=== PATIENT | female | born 1930 | race African-American/Black ===

== ENCOUNTER 2017-04-18 18:33 | Observation (INO) | payer MEDICARE ==
[~2017-04-18] VITALS: Ht 157.5 cm; Wt 46.0 kg
[~2017-04-18 18:33] MED LIST: COUM5TAB PO
[2017-04-18 18:58] VITALS: BP 177/84; PULSE 71; RESP 15; TEMP 98.4
--- NOTE | 2017-04-18 19:25 | PD ---
HPI Chief Complaint: Dizziness Time Seen by Provider: 19:15 Travel History International Travel<30 days: No Contact w/Intl Traveler<30days: No Traveled to known affect area: No History of Present Illness HPI The patient is an 86 year old female who presents to the [facility] emergency department with a history of reportedly feeling off balance since approximately 7 AM this morning. The patient reports that she was sleeping on the couch which is not unusual for her. She reports that she then noticed that the mail restaurant delivery driver had arrived at that time when he usually arrive in the afternoon. She reports that she sat up to go investigate and felt off balance. She reports that she felt as if she was drinking alcohol, however she does not drink. The patient reports that she went to lie down again and throughout the day has continued to feel unusual. She cannot recall moving from one room to the other. She reports that she has not eaten today she has not had an appetite which is also unusual for her. She reports that she is on multiple medications, however she does not know the names of any of her medicines. She reports that her primary care physician is Dr. Patiño. According to the record the patient was previously anticoagulated on Coumadin related to a mechanical heart valve replacement in 2014. She denies being on Coumadin at this time. On review systems, the patient denies any recent fevers, cough, congestion, neck pain, chest pain, shortness of breath, abdominal pain, vomiting , diarrhea, urinary symptoms, one-sided weakness, slurred speech, facial droop, double vision, difficulty with word finding ability, numbness or tingling to her extremities, or sensation of the room spinning. The patient reports that she does live at home alone. The patient is [facility]. She reports that her children live in another state. [facility] Past Medical History Narrative Medical The patient's past medical history is significant for a valve replacement with a mechanical valve in 2015, history of hypertension Hx Anticoagulant Therapy: Yes (COUMADIN ) Cardiovascular Problems: Yes Diminished Hearing: No Influenza Vaccination: No Past Surgical History Narrative Surgical The patient's past surgical history is significant for a valve replacement. Cardiac Surgery: Yes (VALVE REPLACEMENT) Social History Alcohol Use: No Tobacco Use: No Substance Use: No Allergies-Medications (Allergen,Severity, Reaction): Coded Allergies: Penicillin (Verified Allergy, Severe, Rash, 2/21/16) Reported Meds & Prescriptions Reported Meds & Active Scripts Active Narrative Medication The patient is unable to recall any of the names of her indications. Review of Systems Except as stated in HPI: all other systems reviewed are Neg General / Constitutional: No: Fever Eyes: No: Visual changes HENT: Positive: Lightheadedness, No: Headaches Cardiovascular: No: Chest Pain or Discomfort Respiratory: No: Shortness of Breath Gastrointestinal: No: Abdominal Pain Genitourinary: No: Dysuria Musculoskeletal: No: Pain Skin: No Rash Neurologic: Positive: Coordination Problem, Change in Mentation, No: Weakness , Focal Abnormalities, Slurred Speech, Sensory Disturbance Psychiatric: No: Depression Endocrine: No: Polydipsia Hematologic/Lymphatic: No: Easy Bruising Physical Exam Narrative General: The patient is a well-developed well-nourished female in no acute distress Head and Neck exam: Head is normocephalic atraumatic. Eyes: The patient's gaze is disconjugate with right eye slightly gazing outward. She is unsure whether she has a history of this. She reports that she has normal vision currently. She denies having any double vision. Pupils are equal round and reactive to light. Nose: Midline septum with pink mucous membranes Mouth: Dentition unremarkable. Moist mucus membranes. Posterior oropharynx is not erythematous. No tonsillar hypertrophy. Uvula midline. Airway patent. Neck: No palpable lymphadenopathy. No nuchal rigidity. No thyromegaly. Cardiovascular: Regular rate and rhythm without murmurs, gallops, or rubs. Lungs: Clear to auscultation bilaterally. No wheezes, rhonchi, or rales. Abdomen: Soft, without tenderness to palpation in all 4 quadrants of the abdomen. No guarding, rebound, or rigidity. Normal bowel sounds are audible. No tenderness on palpation of McBurney's point. Extremities: No clubbing, cyanosis, or edema. 2+ pulses in all 4 extremities. No calf tenderness on palpation. Back: No costovertebral angle tenderness to palpation. Neurologic Exam: Cranial nerves 2-12 were intact on exam. Strength is 5/5 in all 4 extremities. No sensory deficits noted. No dysdiadochokinesis. Good finger to nose and Heel to concepcion bilaterally. The patient has a slightly unsteady gait with walking, however she is able to stand with good balance without difficulty. Her gait is slightly wide-based. The patient on orientation testing is oriented to person, place, however when asked the year she states that it is 1915, that the month is February. She also has difficulty recalling events earlier today. Skin Exam: No rash noted. Intact skin that is warm and dry. Data Data Last Documented VS Vital Signs Date Time Temp Pulse Resp B/P Pulse Ox O2 Delivery O2 Flow Rate FiO2 04/18/17 20:45 58 18 211/94 98 Room Air 04/18/17 18:58 98.4 Orders Electrocardiogram (04/18/17:17) Complete Blood Count With Diff (04/18/17:17) Comprehensive Metabolic Panel (04/18/17 19:17) Creatine Kinase (Cpk) (04/18/17 19:17) Ckmb (Isoenzyme) Profile (04/18/17 19:17) Troponin I (04/18/17:17) B-Type Natriuretic Peptide (04/18/17 19:17) Prothrombin Time / Inr (Pt) (04/18/17 19:17) Act Partial Throm Time (Ptt) (04/18/17 19:17) Lipase (04/18/17 19:17) Urinalysis - C+S If Indicated (04/18/17 19:17) Magnesium (Mg) (04/18/17 19:17) Chest, Single Ap (04/18/17 19:17) Ct Brain W/O Iv Contrast(Rout) (04/18/17 19:17) Iv Access Insert/Monitor (04/18/17 19:17) Ecg Monitoring (04/18/17 19:17) Oximetry (04/18/17 19:17) Orthostatic Vital Signs (04/18/17 19:17) Ammonia (04/18/17 19:45) Drug Screen, Random Urine (04/18/17 19:45) Alcohol (Ethanol) (04/18/17 19:45) Salicylates (Aspirin) (04/18/17 19:46) Tylenol (Acetaminophen) (04/18/17 19:46) CKMB (04/18/17 19:15) CKMB% (04/18/17 19:15) Sodium Chlor 0.9% 250 Ml Inj (Ns 250 Ml (04/18/17 21:00) Labetalol Inj (Trandate Inj) (04/18/17 21:00) Clonidine (Catapres) (04/18/17 21:45) Admit Order (Ed Use Only) (04/18/17 22:15) Labs Laboratory Tests Test 04/18/17 04/18/17 04/18/17 19:15 20:00 21:33 White Blood Count 9.0 TH/MM3 Red Blood Count 4.61 MIL/MM3 Hemoglobin 10.5 GM/DL Hematocrit 33.2 % Mean Corpuscular Volume 72.1 FL Mean Corpuscular Hemoglobin 22.9 PG Mean Corpuscular Hemoglobin 31.7 % Concent Red Cell Distribution Width 15.8 % Platelet Count 195 TH/MM3 Mean Platelet Volume 7.9 FL Neutrophils (%) (Auto) 56.7 % Lymphocytes (%) (Auto) 29.1 % Monocytes (%) (Auto) 12.0 % Eosinophils (%) (Auto) 1.4 % Basophils (%) (Auto) 0.8 % Neutrophils # (Auto) 5.1 TH/MM3 Lymphocytes # (Auto) 2.6 TH/MM3 Monocytes # (Auto) 1.1 TH/MM3 Eosinophils # (Auto) 0.1 TH/MM3 Basophils # (Auto) 0.1 TH/MM3 CBC Comment DIFF FINAL Differential Comment Prothrombin Time 11.4 SEC Prothromb Time International 1.0 RATIO Ratio Activated Partial 21.8 SEC Thromboplast Time Sodium Level 138 MEQ/L Potassium Level 3.8 MEQ/L Chloride Level 105 MEQ/L Carbon Dioxide Level 27.4 MEQ/L Anion Gap 6 MEQ/L Blood Urea Nitrogen 24 MG/DL Creatinine 1.33 MG/DL Estimat Glomerular Filtration 46 ML/MIN Rate Random Glucose 108 MG/DL Calcium Level 8.8 MG/DL Magnesium Level 2.3 MG/DL Total Bilirubin 0.7 MG/DL Aspartate Amino Transf 24 U/L (AST/SGOT) Alanine Aminotransferase 17 U/L (ALT/SGPT) Alkaline Phosphatase 63 U/L Total Creatine Kinase 255 U/L Creatine Kinase MB 3.0 NG/ML Creatine Kinase MB % 1.2 % Troponin I LESS THAN 0.02 NG/ML B-Type Natriuretic Peptide 160 PG/ML Total Protein 8.0 GM/DL Albumin 3.7 GM/DL Lipase 285 U/L Ethyl Alcohol Level LESS THAN 3 MG/DL Ammonia 19 MCMOL/L Salicylates Level LESS THAN 1.7 MG/DL Acetaminophen Level LESS THAN 2.0 MCG/ML Urine Color YELLOW Urine Turbidity CLEAR Urine pH 6.0 Urine Specific [place] 1.016 Urine Protein TRACE mg/dL Urine Glucose (UA) NEG mg/dL Urine Ketones NEG mg/dL Urine Occult Blood TRACE Urine Nitrite NEG Urine Bilirubin NEG Urine Urobilinogen LESS THAN 2.0 MG/DL Urine Leukocyte Esterase LARGE Urine RBC 5 /hpf Urine WBC 7 /hpf Urine Squamous Epithelial 5 /hpf Cells Microscopic Urinalysis Comment CULT NOT INDICATED Urine Opiates Screen NEG Urine Barbiturates Screen NEG Urine Amphetamines Screen NEG Urine Benzodiazepines Screen NEG Urine Cocaine Screen NEG Urine Cannabinoids Screen NEG MDM Medical Decision Making Medical Screen Exam Complete: Yes Emergency Medical Condition: Yes Medical Record Reviewed: Yes Interpretation(s) Last Impressions Head CT 04/18/171916 Signed Impressions: Service Date/Time: Tuesday, April 18, 2017 19:44 - CONCLUSION: Symmetric mild ventriculomegaly and chronic appearing white matter density changes. Lavelle Ryan MD Chest X-Ray 04/18/171916 Signed Impressions: Service Date/Time: Tuesday, April 18, 2017 19:14 - CONCLUSION: 1. Cardiomegaly without focal consolidation or effusion. Minimal basal atelectasis or scarring. Rigoberto Lane MD Differential Diagnosis Urinary tract infection, versus intracranial abnormality, versus dementia, versus normal pressure hydrocephalus, versus underlying other infectious process such as pneumonia Narrative Course During the course of the patients emergency department visit, the patients history, examination, and differential diagnosis were reviewed with the patient. The patient had IV access obtained and blood work sent for analysis. The patient was placed on a cardiac catheterization technician with oximetry and blood pressure monitoring. An ECG was done on arrival. The patient's ECG shows a sinus rhythm heart rate of 60, QRS duration is 74 ms, QTC [address] segment elevation or depression, T waves are inverted in V1. The patient was initially provided normal saline at 250 mL bolus. Orthostatics were done and were negative for orthostasis, however the patient's blood pressure did go up to 230 systolic while sitting. The patient was observed regarding her elevated blood pressure for slightly longer as she was asymptomatic. The patient's blood pressure continued to be elevated at a systolic of 210. The patient was given labetalol 10 mg IV. It is unclear whether the patient has been on blood pressure medication and whether the patient has been compliant with a regimen. The patients laboratory studies were reviewed and remarkable for white count of 9, hemoglobin 10.5, platelets 195 with 12 monocytes, CMP is remarkable for a BUN of 24, creatinine 1.33, glucose 108, CPK 255, MB percent 1.2, troponin I less than 0.02, lipase 285, ammonia level XIX, PT 11.4, PTT 21.8, salicylate less than 1.7 Radiology studies were reviewed and remarkable for a chest x-ray that shows cardiomegaly without focal consolidation or effusion, minimal basilar atelectasis or scarring. CT scan of the brain shows symmetric mild ventriculomegaly and chronic appearing white matter density changes. The patient's blood pressure continued to be elevated. The patient was given clonidine 0.1 by mouth 1. The patient will be admitted to the hospital for altered mentation, hypertension, rule out urinalysis. Again the lab was called regarding the patient's urinalysis results. The patient was having a urine drug screen run, however the urinalysis was not started at approximately 10:15 PM despite of the sample being sent at received at 2133. Urinalysis is remarkable for trace occult blood, large leukocyte esterase, rbc' s 5, WBCs 7, 5 squamous epithelial cells. Urine drug screen is negative The patients results were discussed with the patient, including the plan of care. I explained that further testing and/ or monitoring is indicated based on the patients history, examination, and/ or laboratory findings. Therefore, I recommended admission for additional evaluation. The patient expressed understanding and was agreeable with this plan. The patient was admitted to the hospital in stable condition and sent to a bed under the care of the [facility] hospitalist service. Physician Communication Physician Communication The patient's case is discussed with Dr. Loera who did agree to admit the patient for further evaluation and treatment at this time. Diagnosis Primary Impression: Altered mental status Qualified Code: R41.0 - Disorientation Additional Impression: Hypertension Qualified Code: I10 - Hypertension, unspecified type Admitting Information Admitting Physician Requests: Aruna Farooq MD Apr 18, 2017 19:25
[2017-04-18 19:33] VITALS: BP_SYST 177; BP_SYST 190; BP_SYST 230; BP_DIAS 102; BP_DIAS 89; BP_DIAS 91; RESP 16; O2SAT 96
--- NOTE | 2017-04-18 19:41 | RADRPT ---
EXAM DATE/TIME: 04/18/2017 19:14 [facility] COMPARISON: No previous studies available for comparison. INDICATIONS : Cough. MEDICAL HISTORY : Myocardial infarction. SURGICAL HISTORY : CABG. ENCOUNTER: Initial ACUITY: 1 day PAIN SCORE: 0/10 LOCATION: Bilateral chest FINDINGS: A single view of the chest demonstrates the lungs to be symmetrically aerated without evidence of mas s, infiltrate or effusion. The cardiomediastinal contours are prominent. No effusion. CONCLUSION: 1. Cardiomegaly without focal consolidation or effusion. Minimal basal atelectasis or scarring. Rigoberto Lane MD on April 18, 2017 at 19:38 Board Certified Radiologist. This report was verified electronically.
[2017-04-18 19:49] LABS: AUTOMATED NEUTROPHIL # 5.1 TH/MM3 (1.8-7.7); BASOPHIL # 0.1 TH/MM3 (0-0.2); BASOPHIL % 0.8 % (0.0-2.0); EOSINOPHIL # 0.1 TH/MM3 (0-0.4); EOSINOPHIL % 1.4 % (0.0-4.0); HEMATOCRIT 33.2 % (35.0-46.0); HEMO FLAGS DIFF FINAL; LYMPH % 29.1 % (9.0-44.0); LYMPHOCYTE # 2.6 TH/MM3 (1.0-4.8); MEAN CELL VOLUME 72.1 FL (80.0-100.0); MEAN CORPUSCULAR HEMOGLOBIN 22.9 PG (27.0-34.0); MEAN CORPUSCULAR HGB CONC 31.7 % (32.0-36.0); NEUT % 56.7 % (16.0-70.0); PLATELET COUNT 195 TH/MM3 (150-450); RED BLOOD COUNT 4.61 MIL/MM3 (4.00-5.30); RED CELL DISTRIBUTION WIDTH 15.8 % (11.6-17.2)
[2017-04-18 19:58] LABS: APTT (PATIENT) 21.8 SEC (24.3-30.1); PROTHROMBIN TIME - PATIENT 11.4 SEC (9.8-11.6)
[2017-04-18 20:18] LABS: ALT (GPT) 17 U/L (10-53); ANION GAP 6 MEQ/L (5-15); AST (GOT) 24 U/L (15-37); BICARBONATE 27.4 MEQ/L (21.0-32.0); BLOOD UREA NITROGEN 24 MG/DL (7-18); CHLORIDE 105 MEQ/L (98-107); GLOMERULAR FILTRATION RATE 46 ML/MIN (>89); MAGNESIUM 2.3 MG/DL (1.5-2.5); POTASSIUM 3.8 MEQ/L (3.5-5.1); SODIUM (NA) 138 MEQ/L (136-145)
--- NOTE | 2017-04-18 20:21 | RADRPT ---
EXAM DATE/TIME: 04/18/2017 19:44 [facility] COMPARISON: No previous studies available for comparison. INDICATIONS : Dizziness and general weakness today. RADIATION DOSE: 56.35 CTDIvol (mGy) MEDICAL HISTORY : Cardiovascular disease. SURGICAL HISTORY : valve replacement ENCOUNTER: Initial ACUITY: 1 day PAIN SCALE: 0/10 LOCATION: Bilateral head TECHNIQUE: Multiple contiguous axial images were obtained of the head. Using automated exposure control and adj ustment of the mA and/or kV according to patient size, radiation dose was kept as low as reasonably a chievable to obtain optimal diagnostic quality images. DICOM format image data is available electro nically for review and comparison. FINDINGS: There is mild symmetric ventriculomegaly. Mild symmetric diminished attenuation in periventricular wh ite matter appears chronic. There is no evidence of intracranial mass or hemorrhage. The extracranial structures are grossly benign and intact. CONCLUSION: Symmetric mild ventriculomegaly and chronic appearing white matter density changes. Lavelle Ryan MD on April 18, 2017 at 20:18 Board Certified Radiologist. This report was verified electronically.
[2017-04-18 20:22] LABS: ALKALINE PHOSPHATASE 63 U/L (45-117); CREATINE KINASE 255 U/L (26-192); TOTAL BILIRUBIN ADULT 0.7 MG/DL (0.2-1.0)
[2017-04-18 20:45] VITALS: BP 211/94; PULSE 58; RESP 18; O2SAT 98
[2017-04-18] MEDS ORDERED: SODIUM CHLOR 0.9% 250 ML INJ 250 ML IV ONE (21:00)
[2017-04-18] MEDS ORDERED: LABETALOL HCL 100 MG/20 ML VIAL IV PUSH ONE (21:00)
[2017-04-18] MEDS ORDERED: cloNIDine HCL 0.1 MG TAB PO ONE (21:45)
[2017-04-18 22:29] LABS: BLOOD, URINE TRACE (NEG); COMMENT (UR) CULT NOT INDICATED; CULTURE IF INDICATED CULT NOT INDICATED; GLUCOSE,URINE NEG (NEG); KETONE, URINE NEG (NEG); NITRITE,URINE NEG (NEG); SQUAMOUS EPITHELIAL CELL URINE 5 /hpf (0-5); URINE COLOR YELLOW (YELLW/STRAW)
[2017-04-18] MEDS ORDERED: cloNIDine HCL 0.1 MG TAB PO PRN (23:00)
[2017-04-18] MEDS: CARVEDILOL 12.5 MG TAB PO SCH (23:08)
[2017-04-18] MEDS: LISINOPRIL 20 MG TAB PO SCH (23:08)
--- NOTE | 2017-04-18 23:16 | HHI.HP ---
HPI Service [facility] Hospitalists Primary Care Physician Mayra Pearson Jr, MD Admission Diagnosis AMS, Unsteady gait, hypertension Chief Complaint: AMS, dizziness, uncontrolled BP Travel History International Travel<30 Days: No Contact w/Intl Traveler <30 Da: No Traveled to Known Affected Are: No History of Present Illness The patient is an 86 year old female with underlying dementia/delusions, HTN, hx AVR who presents to the [facility] emergency department with a history of reportedly feeling off balance since approximately 7 AM this morning. Hx obtained from friend/neighbor and pt as pt is a bit confused. The patient reports that she was sleeping on the couch which is not unusual for her. She reports that she sat up to ambulate and felt off balance. She reports that she felt as if she was drinking alcohol, however she does not drink. The patient reports that she went to lie down again and throughout the day has continued to feel unusual. She cannot recall moving from one room to the other. She reports that she has not eaten today she has not had an appetite which is also unusual for her. She reports that she is on multiple medications, however she does not know the names of any of her medicines. She reports that her primary care physician is Dr. Pearson whom she likes very much. According to the record the patient was previously anticoagulated on Coumadin related to a mechanical heart valve replacement in 2012. She denies being on Coumadin at this time and review of outpt EMR reveals that her coumadin was stopped in Sep 2016 due to increasing confusion and concerns that she was not being c/w medication. She was placed on ASA at that time and reportedly neighbors try to help with her medication regimen. She has been followed by neurology for dementia/delusions and was actually referred to psych earlier in 2017 for delusions, but apparently has not made an appointment with psych per chart review. She has additionally been followed by [facility] plan with [facility]. On review systems, the patient denies any recent fevers, cough, congestion, neck pain, chest pain, shortness of breath, abdominal pain, vomiting, diarrhea, urinary symptoms, one-sided weakness, slurred speech, facial droop, double vision, difficulty with word finding ability, numbness or tingling to her extremities, or sensation of the room spinning. The patient reports that she does live at home alone. The patient is accompanied to this emergency department visit by some evangelical staff and neighbor/friend. She reports that her children live in another state. The friend confirms that her children live elsewhere. Pt had CT done in Sep 2016 as outpt which appears similar to current CT done in ER. Review of Systems ROS Limitations: Altered Mental Status, Poor Historian Constitutional: COMPLAINS OF: Dizziness, Change in appetite Eyes: DENIES: Blurred vision, Diplopia, Eye inflammation, Eye pain, Vision loss , Photosensitivity, Double Vision Respiratory: DENIES: Apneas, Cough, Snoring, Wheezing, Hemoptysis, Sputum production, Shortness of breath Cardiovascular: DENIES: Chest pain, Palpitations, Syncope, Dyspnea on Exertion , PND, Lower Extremity Edema, Orthopnea, Claudication Musculoskeletal: COMPLAINS OF: Joint pain Neurologic: COMPLAINS OF: Abnormal gait, Poor Balance Psychiatric: COMPLAINS OF: Anxiety Past Family Social History Past Medical History Paroxysmal Afib (warfarin stopped in Sep 2016 due to concerns with noncompliance , risk of falls) HTN Dementia/delusions Anxiety Hypothyroidism Chronic anemia Past Surgical History AVR with tissue valve 11/2012 1 vessel CABG 11/2012 Cholecystectomy Reported Medications Pt is unsure of meds. Reports that she takes a "handful of meds" Outpt EMR review: Amlodipine 10mg/d ASA 81mg/d Atorvastatin 40mg/d Calcium + vit D bid MVI Aricept 10mg/d Levothyroxine 25 mcg/d [place] 20[place] [address] units/week Allergies: Coded Allergies: Penicillin (Verified Allergy, Severe, Rash, 11/02/15) Family History [place] Social History Lives alone Attends evangelical and has evangelical members/neighbors who try to look out for her Retired Never a smoker Denies EtOH use Physical Exam Vital Signs Vital Signs Date Time Temp Pulse Resp B/P Pulse Ox O2 Delivery O2 Flow Rate FiO2 04/18/17 20:45 58 18 211/94 98 Room Air 04/18/17 19:33 62 16 177/89 72 16 190/91 71 16 230/102 04/18/17 19:33 96 Room Air 04/18/17 18:58 98.4 71 15 177/84 Physical Exam GENERAL: This is a thin, well-developed patient, in no apparent distress. Pleasantly confused. Cooperative with exam SKIN: No rashes, ecchymoses. Multiple skin tags on face. Cool and dry. HEAD: Atraumatic. Normocephalic. No temporal or scalp tenderness. EYES: Pupils equal round and reactive. Extraocular motions intact. No scleral icterus. No injection or drainage. ENT: Nose without bleeding, purulent drainage or septal hematoma. Airway patent. NECK: Trachea midline. No JVD or lymphadenopathy. Supple, nontender, no meningeal signs. CARDIOVASCULAR: Regular rate and rhythm witout gallops or rubs. soft mid- systolic click with 1/6 DAISY heard at LSB. RESPIRATORY: Clear to auscultation. Breath sounds equal bilaterally. No wheezes , rales, or rhonchi. GASTROINTESTINAL: Abdomen soft, non-tender, nondistended. No hepato-splenomegaly , or palpable masses. No guarding. MUSCULOSKELETAL: Extremities without clubbing, cyanosis, or edema. No calf tenderness. NEUROLOGICAL: Awake and alert. Somewhat confused, but seems to be at her baseline per review of EMR. Cranial nerves II through XII intact. Motor and sensory grossly within normal limits. Five out of 5 muscle strength in all muscle groups. Normal speech. Laboratory Laboratory Tests Test 04/18/17 04/18/17 04/18/17 19:15 20:00 21:33 White Blood Count 9.0 Red Blood Count 4.61 Hemoglobin 10.5 Hematocrit 33.2 Mean Corpuscular Volume 72.1 Mean Corpuscular Hemoglobin 22.9 Mean Corpuscular Hemoglobin 31.7 Concent Red Cell Distribution Width 15.8 Platelet Count 195 Mean Platelet Volume 7.9 Neutrophils (%) (Auto) 56.7 Lymphocytes (%) (Auto) 29.1 Monocytes (%) (Auto) 12.0 Eosinophils (%) (Auto) 1.4 Basophils (%) (Auto) 0.8 Neutrophils # (Auto) 5.1 Lymphocytes # (Auto) 2.6 Monocytes # (Auto) 1.1 Eosinophils # (Auto) 0.1 Basophils # (Auto) 0.1 CBC Comment DIFF FINAL Differential Comment Prothrombin Time 11.4 Prothromb Time International 1.0 Ratio Activated Partial 21.8 Thromboplast Time Sodium Level 138 Potassium Level 3.8 Chloride Level 105 Carbon Dioxide Level 27.4 Anion Gap 6 Blood Urea Nitrogen 24 Creatinine 1.33 Estimat Glomerular Filtration 46 Rate Random Glucose 108 Calcium Level 8.8 Magnesium Level 2.3 Total Bilirubin 0.7 Aspartate Amino Transf 24 (AST/SGOT) Alanine Aminotransferase 17 (ALT/SGPT) Alkaline Phosphatase 63 Total Creatine Kinase 255 Creatine Kinase MB 3.0 Creatine Kinase MB % 1.2 Troponin I LESS THAN 0.02 B-Type Natriuretic Peptide 160 Total Protein 8.0 Albumin 3.7 Lipase 285 Ethyl Alcohol Level LESS THAN 3 Ammonia 19 Salicylates Level LESS THAN 1.7 Acetaminophen Level LESS THAN 2.0 Urine Color YELLOW Urine Turbidity CLEAR Urine pH 6.0 Urine Specific [place] 1.016 Urine Protein TRACE Urine Glucose (UA) NEG Urine Ketones NEG Urine Occult Blood TRACE Urine Nitrite NEG Urine Bilirubin NEG Urine Urobilinogen LESS THAN 2.0 Urine Leukocyte Esterase LARGE Urine RBC 5 Urine WBC 7 Urine Squamous Epithelial 5 Cells Microscopic Urinalysis Comment CULT NOT INDICATED Urine Opiates Screen NEG Urine Barbiturates Screen NEG Urine Amphetamines Screen NEG Urine Benzodiazepines Screen NEG Urine Cocaine Screen NEG Urine Cannabinoids Screen NEG Result Diagram: 04/18/17191404/18/171914 Imaging Last [address] 04/18/171916 Signed Impressions: Service Date/Time: Tuesday, April 18, 2017 19:44 - CONCLUSION: Symmetric mild ventriculomegaly and chronic appearing white matter density changes. Lavelle Ryan MD Chest X-Ray 04/18/171916 Signed Impressions: Service Date/Time: Tuesday, April 18, 2017 19:14 - CONCLUSION: 1. Cardiomegaly without focal consolidation or effusion. Minimal basal atelectasis or scarring. Rigoberto Lane MD Assessment and Plan Problem List: (1) Accelerated essential hypertension Status: Acute Plan: Will resume some of her home meds and use clonidine prn. Appears that some outpt BP values have been similar to current values on review. Will continue to follow. No urgent need to lower dramatically. (2) Altered mental status Status: Acute Plan: Appears to have chronic dementia with evidence of delusions in the past. She lives alone. Will have case mgmt a/w rehab or [facility]. May need jail placement, but family will need to be involved. (3) Dementia Status: Chronic Plan: as above. Continue Aricept CT noted and stable with Sep 2016 CT. Pt doesn't have evidence of urinary incontinence and gait is relatively stable per ER MD so NPH likely not the etiology. (4) Hyperlipidemia Status: Chronic Plan: check labs in AM. Continue med. Would not be overly aggressive. (5) Hypothyroidism Status: Chronic Plan: continue rx. Check labs (6) Unsteady gait Status: Chronic Plan: seems relatively stable per d/w ER provider Fall precautions. PT eval. Assessment and Plan hopefully d/c to rehab tomorrow. Discussed Condition With Pt, ER provider, family friend/evangelical member Problem Qualifiers (1) Altered mental status: Qualified Code: R41.0 - Disorientation Levon Loera MD PhD Apr 18, 2017 23:16
[2017-04-19] VITALS (8 sets, daily range): BP systolic 124–199; BP diastolic 60–86; PULSE 51–60; RESP 16–19; TEMP 96.6–98.1; O2SAT 97–100
[2017-04-19] MEDS: LEVOTHYROXINE SODIUM 25 MCG TAB PO SCH (05:54)
[2017-04-19] MEDS: ATORVASTATIN 40 MG TAB PO SCH (08:39)
[2017-04-19] MEDS: CARVEDILOL 12.5 MG TAB PO SCH (08:40)
[2017-04-19] MEDS: LISINOPRIL 20 MG TAB PO SCH ×2 (08:40→20:09)
[2017-04-19] MEDS: ASPIRIN EC 81 MG TABEC PO SCH (08:40)
--- NOTE | 2017-04-19 09:25 | HHI.PR ---
Subjective Remarks Pt reports that she is feeling better today She is oriented to self only. Objective Vitals Vital Signs Date Time Temp Pulse Resp B/P Pulse Ox O2 Delivery O2 Flow Rate FiO2 04/19/17 08:34 97.5 52 18 145/69 99 04/19/17 03:03 96.8 54 16 159/68 99 04/19/17 02:35 96.6 54 19 199/86 100 04/19/17 00:34 52 18 169/75 99 Room Air 04/19/17 00:09 51 18 192/83 98 Room Air 04/18/17 20:45 58 18 211/94 98 Room Air 04/18/17 19:33 62 16 177/89 72 16 190/91 71 16 230/102 04/18/17 19:33 96 Room Air 04/18/17 18:58 98.4 71 15 177/84 04/18/17 04/18/17 04/19/17 14:59 22:59 06:59 # Voids 1 Result Diagram: 04/18/17191404/18/171914 Other Results Laboratory Tests Test 04/18/17 04/18/17 04/18/17 19:15 20:00 21:33 White Blood Count 9.0 TH/MM3 Red Blood Count 4.61 MIL/MM3 Hemoglobin 10.5 GM/DL Hematocrit 33.2 % Mean Corpuscular Volume 72.1 FL Mean Corpuscular Hemoglobin 22.9 PG Mean Corpuscular Hemoglobin 31.7 % Concent Red Cell Distribution Width 15.8 % Platelet Count 195 TH/MM3 Mean Platelet Volume 7.9 FL Neutrophils (%) (Auto) 56.7 % Lymphocytes (%) (Auto) 29.1 % Monocytes (%) (Auto) 12.0 % Eosinophils (%) (Auto) 1.4 % Basophils (%) (Auto) 0.8 % Neutrophils # (Auto) 5.1 TH/MM3 Lymphocytes # (Auto) 2.6 TH/MM3 Monocytes # (Auto) 1.1 TH/MM3 Eosinophils # (Auto) 0.1 TH/MM3 Basophils # (Auto) 0.1 TH/MM3 CBC Comment DIFF FINAL Differential Comment Prothrombin Time 11.4 SEC Prothromb Time International 1.0 RATIO Ratio Activated Partial 21.8 SEC Thromboplast Time Sodium Level 138 MEQ/L Potassium Level 3.8 MEQ/L Chloride Level 105 MEQ/L Carbon Dioxide Level 27.4 MEQ/L Anion Gap 6 MEQ/L Blood Urea Nitrogen 24 MG/DL Creatinine 1.33 MG/DL Estimat Glomerular Filtration 46 ML/MIN Rate Random Glucose 108 MG/DL Calcium Level 8.8 MG/DL Magnesium Level 2.3 MG/DL Total Bilirubin 0.7 MG/DL Aspartate Amino Transf 24 U/L (AST/SGOT) Alanine Aminotransferase 17 U/L (ALT/SGPT) Alkaline Phosphatase 63 U/L Total Creatine Kinase 255 U/L Creatine Kinase MB 3.0 NG/ML Creatine Kinase MB % 1.2 % Troponin I LESS THAN 0.02 NG/ML B-Type Natriuretic Peptide 160 PG/ML Total Protein 8.0 GM/DL Albumin 3.7 GM/DL Lipase 285 U/L Ethyl Alcohol Level LESS THAN 3 MG/DL Ammonia 19 MCMOL/L Salicylates Level LESS THAN 1.7 MG/DL Acetaminophen Level LESS THAN 2.0 MCG/ML Urine Color YELLOW Urine Turbidity CLEAR Urine pH 6.0 Urine Specific [place] 1.016 Urine Protein TRACE mg/dL Urine Glucose (UA) NEG mg/dL Urine Ketones NEG mg/dL Urine Occult Blood TRACE Urine Nitrite NEG Urine Bilirubin NEG Urine Urobilinogen LESS THAN 2.0 MG/DL Urine Leukocyte Esterase LARGE Urine RBC 5 /hpf Urine WBC 7 /hpf Urine Squamous Epithelial 5 /hpf Cells Microscopic Urinalysis Comment CULT NOT INDICATED Urine Opiates Screen NEG Urine Barbiturates Screen NEG Urine Amphetamines Screen NEG Urine Benzodiazepines Screen NEG Urine Cocaine Screen NEG Urine Cannabinoids Screen NEG Imaging Last [address] 04/18/171916 Signed Impressions: Service Date/Time: Tuesday, April 18, 2017 19:44 - CONCLUSION: Symmetric mild ventriculomegaly and chronic appearing white matter density changes. Lavelle Ryan MD Chest X-Ray 04/18/171916 Signed Impressions: Service Date/Time: Tuesday, April 18, 2017 19:14 - CONCLUSION: 1. Cardiomegaly without focal consolidation or effusion. Minimal basal atelectasis or scarring. Rigoberto Lane MD Objective Remarks General: NAD, Alert and oriented to self only Chest: CTA Cardiac: Regular Abd: +BS, soft ND/NT Ext: No edema A/P Problem List: (1) Accelerated essential hypertension Status: Acute Plan: - Pt was resumed on Coreg 12.5mg po BID, Lisinopril 20mg BID and Norvasc 10mg po daily. - BP is better today but HR in the 50's. - Clonidine prn. - It is not clear that the pt is taking her medications consistently at home as she lives alone and has dementia - Hold the COreg this morning as HR is in the 50's - Cont. Norvasc and Lisinopril - Will continue to follow. - PT to evaluate today - Pt will need SNF placement and then likely LTC after that but this will need to be discussed with her family. - Supportive care (2) Altered mental status Status: Acute Plan: - Appears to have chronic dementia with evidence of delusions in the past. - She lives alone. - Will have case mgmt a/w rehab or [facility]. - Discussed the case with one of the pts (3) Dementia Status: Chronic Plan: - As above. Continue Aricept - CT noted and stable with Sep 2016 CT. - Pt doesn't have evidence of urinary incontinence and gait is relatively stable per ER MD so NPH likely not the etiology. (4) Hyperlipidemia Status: Chronic Plan: - Continue home meds. - Would not be overly aggressive. (5) Hypothyroidism Status: Chronic Plan: continue rx. Check labs (6) Unsteady gait Status: Chronic Plan: - Fall precautions. - PT eval. Assessment and Plan Patient examined. Assessment and plan formulated with Ethel Linder PA-C. I agree with the above. elevated htn. adjust bp meds today and observe. progressive dementia and declining ability to care for self.../ noncompliance with meds suspected. family called and they agree with snf...d/c in AM Problem Qualifiers (1) Altered mental status: Qualified Code: R41.0 - Disorientation Ethel Linder Apr 19, 2017 09:25 Nahid Del Valle MD Apr 19, 2017 12:04
[2017-04-19 10:08] LABS: BICARBONATE 28.8 MEQ/L (21.0-32.0); POTASSIUM 4.2 MEQ/L (3.5-5.1)
[2017-04-19 10:17] LABS: HDL CHOLESTEROL 69.7 MG/DL (40.0-60.0)
--- NOTE | 2017-04-19 15:40 | EKG ---
Date Performed: 04/18/2017 Time Performed: 19:43:58 PTAGE: 86 years EKG: Sinus rhythm POSSIBLE LEFT ATRIAL ENLARGEMENT BORDERLINE ECG PREVIOUS TRACING : 11/02/2015 19.41 DOCTOR: Radha Rider Interpretating Date/Time 04/19/2017 15:37:51
[2017-04-19] MEDS ORDERED: LEVO25TA4 PO (16:53)
[2017-04-19] MEDS ORDERED: ASPI-99 PO (16:53)
[2017-04-19] MEDS ORDERED: ATOR40TA16 PO (16:53)
[2017-04-19] MEDS ORDERED: LISI-515 PO (16:53)
[2017-04-19] MEDS ORDERED: ARIC5TAB2 PO (16:53)
--- NOTE | 2017-04-19 16:55 | HHI.DCPOC ---
Discharge Care Plan Diagnosis: (1) Hypertension (2) Hyperlipidemia (3) Hypothyroidism (4) Altered mental status (5) Unsteady gait (6) Accelerated essential hypertension (7) Dementia Goals to Promote Your Health * To prevent worsening of your condition and complications * To maintain your health at the optimal level Directions to Meet Your Goals Take your medications as prescribed Follow your dietary instruction Follow activity as directed Keep your appointments as scheduled Take your immunizations and boosters as scheduled If your symptoms worsen call your PCP, if no PCP go to Urgent Care Center or Emergency Room Smoking is Dangerous to Your Health. Avoid second hand smoke Call the 24-hour hour crisis hotline for domestic abuse at Ethel Linder Apr 19, 2017 16:55
[2017-04-19] MEDS ORDERED: DONEPEZIL HCL 5 MG TAB PO SCH (21:00)
[2017-04-20 00:31] VITALS: BP 179/85; PULSE 68; RESP 17; TEMP 98.2; O2SAT 98
[2017-04-20 05:18] VITALS: BP 185/87; PULSE 68; RESP 16; TEMP 97.6; O2SAT 99
[2017-04-20] MEDS: LEVOTHYROXINE SODIUM 25 MCG TAB PO SCH (05:24)
[2017-04-20 07:27] VITALS: BP 196/93; PULSE 67; RESP 18; TEMP 97.8; O2SAT 98
[2017-04-20] MEDS: NIFEdipine 30 MG SUSTAINED RELEASE TAB PO SCH ×2 (07:41→09:00)
[2017-04-20] MEDS ORDERED: NIFE30TA8 PO (08:32)
--- NOTE | 2017-04-20 09:26 | HHI.PR ---
Subjective Remarks pleasantly demented nad. Objective Vitals heart reg lung cta abd s/nt ext no edema Vital Signs Date Time Temp Pulse Resp B/P Pulse Ox O2 Delivery O2 Flow Rate FiO2 04/20/17 07:27 97.8 67 18 196/93 98 04/20/17 05:18 97.6 68 16 185/87 99 04/20/17 00:31 98.2 68 17 179/85 98 04/19/17 19:46 97.3 60 17 161/75 100 04/19/17 15:29 97.6 60 18 124/60 97 04/19/17 12:43 98.1 56 16 131/60 99 04/19/17 04/19/17 04/20/17 14:59 22:59 06:59 Intake Total 600 ml Balance 600 ml Intake Oral 600 ml # Voids 2 1 Result Diagram: 04/18/17191404/19/17 0855 Imaging Last [address] 04/18/171916 Signed Impressions: Service Date/Time: Tuesday, April 18, 2017 19:44 - CONCLUSION: Symmetric mild ventriculomegaly and chronic appearing white matter density changes. Lavelle Ryan MD Chest X-Ray 04/18/171916 Signed Impressions: Service Date/Time: Tuesday, April 18, 2017 19:14 - CONCLUSION: 1. Cardiomegaly without focal consolidation or effusion. Minimal basal atelectasis or scarring. Rigoberto Lane MD A/P Problem List: (1) Accelerated essential hypertension Status: Acute Plan: - Pt was resumed on Coreg 12.5mg po BID, Lisinopril 20mg BID and Norvasc 10mg po daily. - It is not clear that the pt is taking her medications consistently at home as she lives alone and has dementia - coreg was held due to bradycadia -bp elevated again on norvasc and lisinipril -will d/c norvasc and add bid procardia -recheck bp later today..plan to d/c to snf for PT and continued titration of bp meds (2) Altered mental status Status: Acute Plan: - Appears to have chronic dementia with evidence of delusions in the past. - She lives alone. - Will have case mgmt a/w rehab or [facility]. - Discussed the case with pt family (3) Dementia Status: Chronic Plan: - As above. Continue Aricept - CT noted and stable with Sep 2016 CT. - Pt doesn't have evidence of urinary incontinence and gait is relatively stable per ER MD so NPH likely not the etiology. (4) Hyperlipidemia Status: Chronic Plan: - Continue home meds. - Would not be overly aggressive. (5) Hypothyroidism Status: Chronic Plan: continue rx. Check labs (6) Unsteady gait Status: Chronic Plan: - Fall precautions. - PT eval. Problem Qualifiers (1) Altered mental status: Qualified Code: R41.0 - Disorientation Nahid Del Valle MD Apr 20, 2017 09:26
[2017-04-20] MEDS: LISINOPRIL 20 MG TAB PO SCH (09:39)
[2017-04-20] MEDS: ATORVASTATIN 40 MG TAB PO SCH (09:39)
[2017-04-20] MEDS: ASPIRIN EC 81 MG TABEC PO SCH (09:39)
[2017-04-20 10:46] VITALS: BP 150/80
== END 2017-04-20 12:40 | disposition home or self-care (01) ==
LOC: NEPE 18:33 → NEDA 22:16 → NEPGCP 04-19 01:10
PROVIDERS: ADMIT Hospitalist; ATTEND Hospitalist
DX: R41.82 Altered mental status, unspecified (principal); I10 Essential (primary) hypertension; R26.81 Unsteadiness on feet; R42 Dizziness and giddiness; I48.0 Paroxysmal atrial fibrillation; F03.90 Unspecified dementia, unspecified severity, without behavioral disturbance, psychotic disturbance, mood disturbance, and anxiety; F41.9 Anxiety disorder, unspecified; F22 Delusional disorders; E03.9 Hypothyroidism, unspecified; Z95.2 Presence of prosthetic heart valve; Z95.1 Presence of aortocoronary bypass graft; E78.5 Hyperlipidemia, unspecified; I51.7 Cardiomegaly; Z79.82 Long term (current) use of aspirin; Z79.899 Other long term (current) drug therapy; Z79.01 Long term (current) use of anticoagulants
CPT/HCPCS: 70450; 71010; 80048; 80053; 80061; 80307; 81001; 82140; 82550; 82552; 83690; 83735; 83880; 84443; 84484; 85025; 85610; 85730; 93005; 96365; 96375; 97163; 99285; G0378; G8987; G8988; J7050

== ENCOUNTER 2017-05-23 16:27 | Emergency (ER) | payer MEDICARE ==
[~2017-05-23] VITALS: Ht 157.5 cm; Wt 46.0 kg
[~2017-05-23 16:27] MED LIST changes: +ARIC5TAB2 PO; +ASPI-99 PO; +ATOR40TA16 PO; -COUM5TAB PO; +LEVO25TA4 PO; +LISI-515 PO; +NIFE30TA8 PO
[2017-05-23 16:30] VITALS: BP 178/89; PULSE 81; RESP 16; TEMP 98.4; O2SAT 99
--- NOTE | 2017-05-23 16:47 | PD ---
HPI Chief Complaint: Medical Clearance Time Seen by Provider: 16:45 Travel History International Travel<30 days: No Contact w/Intl Traveler<30days: No Traveled to known affect area: No History of Present Illness HPI 86-year-old female history of dementia presents to emergency department for medical evaluation. Patient states she got into an argument with her daughter- in-law. She tells me that she does not like her [id number]-azi because her [id number] is not kind to her. She did call her names and police were contacted. This resulted in her zqgpisub-lw-ful demanding that she come to the emergency department for evaluation. Patient denies suicidal homicidal ideations. She has a known history of dementia. She denies any recent illnesses, fever, chills. She has no other symptoms to report. PFSH Past Medical History Hx Anticoagulant Therapy: Yes (COUMADIN ) Blood Disorders: No Heart Rhythm Problems: No Cancer: No Cardiovascular Problems: Yes High Cholesterol: No Chemotherapy: No Chest Pain: Yes Congestive Heart Failure: No Diminished Hearing: No Endocrine: No Genitourinary: No Immune Disorder: No Psychiatric: No Reproductive: No Respiratory: No Radiation Therapy: No ?: Not Past Surgical History Cardiac Surgery: Yes (VALVE REPLACEMENT) Social History Alcohol Use: No Tobacco Use: No Substance Use: No Allergies-Medications (Allergen,Severity, Reaction): Coded Allergies: penicillin G (Unverified Allergy, Severe, Rash, 04/26/17) Reported Meds & Prescriptions Reported Meds & Active Scripts Active Nifedipine ER 24 HR (Nifedipine) 30 Mg Tab 30 Mg PO BID Lisinopril 20 Mg Tab 20 Mg PO Q12HR Levothyroxine (Levothyroxine Sodium) 25 Mcg Tab 25 Mcg PO DAILY@0600 Aricept (Donepezil HCl) 5 Mg Tablet 10 Mg PO HS Adult Aspirin EC Low Strength (Aspirin) 81 Mg Tabec 81 Mg PO DAILY Atorvastatin (Atorvastatin Calcium) 40 Mg Tab 40 Mg PO DAILY Review of Systems Except as stated in HPI: all other systems reviewed are Neg Physical Exam Narrative GENERAL: Well-nourished, very pleasant, well-developed elderly female patient, in no acute distress. Patient is oriented to self and place. She believes the president is Roderick. SKIN: Focused skin assessment warm/dry. HEAD: Normocephalic. EYES: No scleral icterus. No injection or drainage. NECK: Supple, trachea midline. No JVD or lymphadenopathy. CARDIOVASCULAR: Regular rate and rhythm without murmurs, gallops, or rubs. RESPIRATORY: Breath sounds equal bilaterally. No accessory muscle use. GASTROINTESTINAL: Abdomen soft, non-tender, nondistended. MUSCULOSKELETAL: No cyanosis, or edema. BACK: Nontender without obvious deformity. No CVA tenderness. Data Data Last Documented VS Vital Signs Date Time Temp Pulse Resp B/P (MAP) Pulse Ox O2 Delivery O2 Flow Rate FiO2 05/23/17 18:53 05/23/17 16:30 98.4 81 16 99 Orders Orders Urinalysis - C+S If Indicated (05/23/17 16:45) Cephalexin (Keflex) (05/23/17 17:45) Labs Laboratory Tests Test 05/23/17 16:45 Urine Color YELLOW Urine Turbidity HAZY Urine pH 5.5 Urine Specific [place] 1.011 Urine Protein 30 mg/dL Urine Glucose (UA) NEG mg/dL Urine Ketones NEG mg/dL Urine Occult Blood TRACE Urine Nitrite NEG Urine Bilirubin NEG Urine Urobilinogen LESS THAN 2.0 MG/DL Urine Leukocyte Esterase LARGE Urine RBC 11 /hpf Urine WBC 7 /hpf Urine Squamous Epithelial Cells 7 /hpf Urine Amorphous Sediment RARE Urine Bacteria FEW /hpf Urine Hyaline Casts 10 /lpf Urine Mucus FEW /lpf Microscopic Urinalysis Comment CULT NOT INDICATED MDM Medical Decision Making Medical Screen Exam Complete: Yes Emergency Medical Condition: Yes Medical Record Reviewed: Yes Differential Diagnosis Dementia versus Alzheimer disease versus UTI versus normal examination Narrative Course 86-year-old female presents to the emergency department for evaluation following an argument with her kgbovnfo-ih-oid. Patient appears well. She is without distress. Her story is consistent in regards to not even with her egspypue-tm-yin. She does show common signs of dementia but nothing emergent needs to be intervened on at this time. Urinalysis is ordered for evaluation of possible exacerbation of her symptoms and patient does have a UTI so she will be started on oral antibiotics and first dose is given here. I have contacted case management to help get the patient home. He has contacted the family who is requesting the patient be placed in a home. It is explained to the family that that needs to be initiated to primary care and with no emergent need or urgent needs to admit the patient at this time it will not be done here in emergency department. A neighbor was able to be contacted to take the patient home. Diagnosis Primary Impression: Dementia Qualified Codes: F03.90 - Unspecified dementia without behavioral disturbance Additional Impression: UTI (urinary tract infection) Qualified Codes: N30.00 - Acute cystitis without hematuria Referrals: Primary Care Physician Patient Instructions: Dementia (ED), General Instructions Additional Instructions: Follow-up with a primary care provider Return immediately with any acute worsening of symptoms Med/Other Pt SpecificInfo: Prescription(s) given Disposition: 01 DISCHARGE HOME Condition: Stable Reema Sarmiento May 23, 2017 16:47
[2017-05-23 17:33] LABS: BACTERIA, URINE FEW /hpf; BLOOD, URINE TRACE (NEG); COMMENT (UR) CULT NOT INDICATED; CULTURE IF INDICATED CULT NOT INDICATED; GLUCOSE,URINE NEG (NEG); HYALINE CAST, URINE 10 /lpf (RARE); KETONE, URINE NEG (NEG); MUCUS URINE FEW /lpf (OCC); NITRITE,URINE NEG (NEG); PH, URINE 5.5 (5.0-8.5); SQUAMOUS EPITHELIAL CELL URINE 7 /hpf (0-5); URINE COLOR YELLOW (YELLW/STRAW)
[2017-05-23] MEDS ORDERED: CEPHALEXIN MONOHYDRATE 500 MG CAP PO ONE (17:45)
== END 2017-05-23 18:55 | disposition home or self-care (01) ==
LOC: NETRI 16:27 → EDTENT 18:55
DX: F03.90 Unspecified dementia, unspecified severity, without behavioral disturbance, psychotic disturbance, mood disturbance, and anxiety (principal); N30.00 Acute cystitis without hematuria; Z79.01 Long term (current) use of anticoagulants
CPT/HCPCS: 81001; 99283